=== PATIENT | female | born 1995 | race Caucasian/White ===

== ENCOUNTER 2024-06-21 11:11 | Inpatient (IN) | payer OTHER ==
[2024-06-04 13:11] VITALS: BP 96/66
[~2024-06-21] VITALS: Ht 139.7 cm; Wt 0.5 kg
[2024-06-21] MEDS ORDERED: DEXAMETHASONE SODIUM PHOSPHATE 4 MG/ML VIAL ONE (13:00)
[2024-06-21] MEDS ORDERED: ONDANSETRON HCL 2 MG/ML VIAL IV PRN (15:00)
[2024-06-21] MEDS ORDERED: ENALAPRILAT DIHYDRATE 1.25 MG/ML VIAL IV PRN (15:00)
[2024-06-21] MEDS ORDERED: ONDANSETRON HCL 2 MG/ML VIAL ONE (16:40)
[2024-06-21] MEDS ORDERED: ACETAMINOPHEN 500 MG GEL..CAP PO SCH (17:00)
[2024-06-21 18:36] VITALS: BP 130/73; O2SAT 100
[2024-06-21] MEDS ORDERED: Calcium Carbonate 1 TAB TABLET PO SCH (21:00)
[2024-06-21] MEDS ORDERED: PANTOPRAZOLE SODIUM 40 MG/VIAL VIAL IV PUSH SCH (21:00)
[2024-06-22 01:05] VITALS: BP 97/69; O2SAT 95
[2024-06-22] MEDS ORDERED: LEVOTHYROXINE SODIUM 50 MCG TABLET PO SCH (06:00)
[2024-06-22 08:00] VITALS: BP 90/62; O2SAT 97
[2024-06-22] MEDS ORDERED: CALCITRIOL 0.5 MCG CAPSULE PO SCH (09:00)
[2024-06-22] MEDS ORDERED: ACETAMINOPHEN 160 MG/5 ML ML PO SCH (13:00)
[2024-06-22] MEDS ORDERED: MELATONIN 5 MG TABLET PO SCH (17:00)
[2024-06-22] MEDS ORDERED: CALCITRIOL 0.25 MCG/0.17 ML ML PO SCH (17:00)
[2024-06-22 17:42] VITALS: BP 122/90; O2SAT 99
[2024-06-23] VITALS: BP 90/55; O2SAT 99
[2024-06-23 08:00] VITALS: BP 90/62; O2SAT 97
[2024-06-23 16:00] VITALS: BP 109/73; O2SAT 97
[2024-06-23 19:35] LABS: ALBUMIN 3.3 gm/dL (3.4-5.0); CALCIUM 8.6 mg/dL (8.5-10.1); CREATININE SERUM 1.03 mg/dL (0.55-1.02); GFR 62.92; PHOSPHOROUS 4.8 mg/dL (2.5-4.9); POTASSIUM 3.79 mEq/L (3.5-5.1)
[2024-06-23 19:37] LABS: ALBUMIN 3.3 gm/dL (3.4-5.0); CALCIUM 8.5 mg/dL (8.5-10.1); CREATININE SERUM 1.03 mg/dL (0.55-1.02); GFR 62.92; MAGNESIUM 1.5 mg/dL (1.8-2.4); PHOSPHOROUS 4.7 mg/dL (2.5-4.9); POTASSIUM 3.83 mEq/L (3.5-5.1)
[2024-06-24] VITALS: BP 97/52; O2SAT 97
[2024-06-24 08:36] LABS: ALBUMIN 3.3 gm/dL (3.4-5.0); CALCIUM 8.6 mg/dL (8.5-10.1); CREATININE SERUM 0.8 mg/dL (0.55-1.02); GFR 84.22; POTASSIUM 4.34 mEq/L (3.5-5.1)
[2024-06-24 08:55] VITALS: BP 85/61; O2SAT 96
== END 2024-06-24 14:22 | disposition home or self-care (01) | DRG 627 ==
LOC: CIR.AMB 11:11 → O/R 15:27 → SURH 15:52
PROVIDERS: ADMIT Surgery; ATTEND Surgery
PROC: 0GTK0ZZ Resection of Thyroid Gland, Open Approach (ICD-10-PCS; principal; 2024-06-21 12:30)
DX: E06.3 Autoimmune thyroiditis (principal); E05.00 Thyrotoxicosis with diffuse goiter without thyrotoxic crisis or storm